=== PATIENT | male | born 1985 | race Caucasian/White ===

== ENCOUNTER 2023-12-27 02:59 | Emergency (ER) | payer BC, SELFPAY ==
[2023-12-27 03:02] VITALS: BP 158/112
[2023-12-27 03:15] VITALS: BMI 38.0
[2023-12-27 03:17] VITALS: BP 131/97
[2023-12-27 03:38] LABS: % Basophils 0.8 % (0-2); % Eosinophils 2.3 % (0-6); % Immature Granulocytes 0.3 % (0-0.5); % Lymphocytes 40.4 % (20.5-51.1); % Monocytes 9.1 % (1.7-9.3); % Neutrophils 47.1 % (42.2-75.2); Absolute Basophils 0.1 10^3/uL (0-0.2); Absolute Eosinophils 0.2 10^3/uL (0-0.7); Absolute Monocytes 0.7 10^3/uL (0.1-0.6); Absolute Neutrophils 3.5 10^3/uL (1.4-6.5); Hematocrit 41.3 % (39.0-52.0); Hemoglobin 14.9 g/dL (13.0-18.0); Mean Corp Hgb Conc. 36.1 g/dL (33.0-37.0); Mean Corpuscular Volume 80.4 fL (80.0-94.0); Mean Platelet Volume 9.5 fL (7.4-10.4); Nucleated Red Blood Cells % 0 % (-); Platelet Count 194 10^3/uL (130-400); Red Blood Cell Count 5.14 10^6/uL (4.70-6.10); Red Cell Dist. Width 11.9 % (11.5-14.5); White Blood Cell Count 7.4 10^3/uL (4.8-10.8)
[2023-12-27 03:59] LABS: ALT (SGPT) 19 U/L (0-50); AST (SGOT) 25 U/L (17-59); Albumin 4.6 g/dl (3.5-5.0); Alkaline Phosphatase 54 U/L (38-126); Blood Urea Nitrogen 13 mg/dl (9-20); Calcium 9.8 mg/dl (8.4-10.2); Carbon Dioxide 25 mmol/L (22-30); Chloride 105 mmol/L (98-107); Estimated Creatinine Clearance 109 ml/min; Glucose 98 mg/dl (70-99); Lipase 86 U/L (23-300); Potassium 4.3 mmol/L (3.5-5.1); Sodium 141 mmol/L (135-145); eGFR > 60.00
[2023-12-27] MEDS: ZOFRAN 4 MG IV (04:46)
[2023-12-27] MEDS: MORPHINE SULFATE 4 MG IV (04:46)
[2023-12-27 04:59] VITALS: BP 116/92
[2023-12-27 05:03] LABS: Urine Albumin Negative (Neg - Trace); Urine Bilirubin Negative (Negative); Urine Character Clear (Clear); Urine Color Yellow; Urine Glucose Negative (Negative); Urine Ketone Negative (Negative); Urine Leukocyte Negative (Negative); Urine Nitrite Negative (Negative); Urine Occult Blood Negative (Negative); Urine Specific Gravity 1.015 (<1.030); Urine Urobilinogen Negative (Neg - 1+)
[2023-12-27 05:18] LABS: Lactic Acid 1.1 mmol/L (0.7-2.0)
--- NOTE | 2023-12-27 05:44 | ED.GENMED ---
History of Present Illness
General
Chief Complaint: Abdominal Pain
Source: patient
Exam Limitations: none
Time Seen by Provider: 12/27/23 03:47
Nursing documentation reviewed up to this point in time: agreed with
History of Present Illness
History of Present Illness:
Pleasant 38-year-old male that presents with abdominal pain. He states that the pain has been present for the last few hours. He reports that the pain is similar to previous bowel obstruction pain. Denies fever or chills. Patient has a past
medical history significant for appendectomy, cholecystectomy, and tonsillectomy. Patient has had several colonoscopies. Patient has had a few episodes of nonbloody diarrhea. Denies chest pain or shortness of breath.
Past History
Past History
ED Past Medical History: GERD and Other (seasonal allergies)
Social History
Tobacco: Non-smoker
Alcohol: Occasional
Drug: None
Personal:
Living: with family
Phy Exam
General Physical Exam
General Presentation: well appearing and no apparent distress
General Skin: warm and dry
General Habitus: normal
General Mental: alert
General Hydration: appears well hydrated
ENT Exam
ENT Exam: EOMI, pharynx normal, neck supple and normocephalic
Eye Exam
Eye Exam: PERRL, cornea clear and conjunctiva normal
Cardiovascular Exam
Cardiovascular Exam: regular rate/rhythm, no edema, no murmur and normal peripheral pulses
Pulmonary Exam
Pulmonary Exam: lungs clear and no respiratory distress
Gastrointestinal Exam
Gastrointestinal Exam: normal bowel sounds, non tender, soft and non distended
Palpation: generalized: Minimal tenderness
Neurological Exam
Neurological Exam: alert, oriented x3, no motor deficits and speech normal
Musculoskeletal Exam
Musculoskeletal Exam: full ROM and no edema
Skin Exam
Skin Exam: normal color, warm/dry, no rash and no petechia
Psychiatric Exam
Psychiatric Exam: normal mood/affect
Course
Orders/Labs/Results
Orders:
Orders
12/27/23 03:26
Complete Blood Count/With Diff Urgent
Comprehensive Metabolic Panel Urgent
Lipase Urgent
12/27/23 04:41
Morphine Sulfate 4 mg IV NOW STA
Ondansetron Injectable [Zofran] 4 mg IV NOW STA
12/27/23 04:42
CT Abd/pelvis W Iv Cont Urgent
Comment:
Reason For Exam: abd pain similar to previous obstruction
12/27/23 04:53
Lactic Acid Q4H
Comment: CANCEL 2nd LACTIC ACID IF 1st LACTIC ACID IS LESS THAN 2
12/27/23 04:54
Urinalysis Reflex To Culture Urgent
Date Specimen was Collected: 12/27/23
Time Specimen was Collected: 04:54
12/27/23 05:49
Dicyclomine HCl [Bentyl] 20 mg IM NOW STA
12/27/23 05:57
Electrocardiogram (*1) Urgent
Reason for Study: Abdominal Pain
EKG- Treatment ONCE
12/27/23 06:36
Glycerin [Glycerin Suppository Adult] 1 supp RECTAL NOW STA
HYDROmorphone [Dilaudid] 0.5 mg IV NOW STA
Magnesium Citrate [Citroma] 300 ml PO ONCE ONE
Abnormal Lab Results
12/27/23
03:26
Absolute Monos (auto) 0.7 H 10^3/uL
(0.1-0.6)
12/27/23 03:26
12/27/23 03:26
Vital Signs
Initial and Last Documented VS:
Initial Vital Signs
Temp Pulse Resp BP Pulse Ox
98.7 F 86 24 158/112 100
12/27/23 03:02 12/27/23 03:02 12/27/23 03:02 12/27/23 03:02 12/27/23 03:02
Last Documented Vital Signs
Temp Pulse Resp BP Pulse Ox
98.2 F 73 24 133/84 97
12/27/23 03:19 12/27/23 06:05 12/27/23 03:02 12/27/23 07:00 12/27/23 07:45
*Radiology
Radiology exam reviewed: radiology read reviewed
*Pulse Oximetry
Patient hypoxic: no
*EKG
Interpreted by ED Provider?: Yes
EKG Intrepretation Date: 12/27/23
Interpretation: normal
Comparison EKG: no changes
Heart Rate: 62
Rate: normal
Rhythm: sinus
Alpha: normal axis
Interval: normal interval
QRS Pattern: normal QRS
Ischemia: no ischemia
*Down Filler Interpretation
Rate: normal
Interpretation: normal
Rhythm: sinus
*Critical Care Note
Total Time (30-74mins, 75-104mins- exclusive of procedures): Not Applicable
Update Note
Update Note:
No prior
Additional Information (per [facility]):
CT abdomen and pelvis with IV contrast
IMPRESSION:
Status post appendectomy. No bowel obstruction or diverticulitis. Stomach decompressed.
Status post cholecystectomy with pneumobilia. No pancreatitis. No obstructing renal stone. Small fat-containing umbilical hernia. No free fluid or free air.
Finalized at 5:31 AM EST
Patient states that the pain is still persistent. He states he has not have a bowel movement since Wednesday. Will give a dose of Bentyl.
12/27/2023 0637 AM: Went into talk to the patient about his CT scan. He states that he is still in pain. The Bentyl did not work. We discussed the CT findings. We discussed lab work. He again asked for stronger pain medication. I feel that it
is reasonable but he does understand that narcotic pain medication may worsen constipation. I did offer him an enema which he refused. He did agree to a glycerin suppository under the condition that he insert it. Will give him a bottle of mag
citrate for discharge.
12/27/2023 0700 AM: Patient resting comfortably, minimal acute distress.
ED Attending Note
-
Portions of this chart may have been created with voice recognition software.� Occasional wrong word or��sound alike� substitutions may have occurred due to the inherent limitations of voice recognition software.
Discharge Plan
Departure
Patient Disposition: Home (Routine Discharge)
Date of Disposition: 12/27/23
Time of Disposition: 07:00
Patient with high blood pressure during this ER visit?: Yes
Condition: Good
Discharge Problem:
Abdominal pain, Constipation
Instructions: Constipation, Adult (DC), Abdominal Pain, BLOOD PRESSURE
Prescriptions:
No Action
mometasone-formoterol [Dulera] 1 PUFF HFA aerosol inhaler
1 puff inhalation QPM
albuterol sulfate [Ventolin HFA] 90 MCG/PUFF HFA aerosol inhaler
1 - 2 puff inhalation Q4HPRN PRN (Reason: cough or wheeze)
hydrocodone-acetaminophen 1 TABLET tablet
1 tab PO Q4HPRN PRN (Reason: pain) Qty: 8 0RF
Referrals:
Roc Hicks MD [Family Provider] -
Activity Restrictions/Additional Instructions:
Take one half of the magnesium citrate provided when you get home. Wait 6 hours for results. If you do not have any results after 6 hours, take the other half of the bottle. If you still do not have any results after the second dose, please
return to the emergency department.
It was a pleasure meeting you and taking part in your care. We hope for your continued healing and wellness.
Please read discharge instructions in their entirety. However, they are for general education and may not describe your exact diagnosis at discharge. Information on your ER visit and medical conditions were discussed with you along with appropriate
follow up information...
If indicated, please take your medications as instructed and indicated on discharge paperwork.
Please schedule a follow up appointment as directed. Call to schedule an appointment
Please return to the emergency department with ANY change in, persisting, or worsening of symptoms. If any of your symptoms do not improve, or persist, or become more severe within 6-12 hours, please return to the emergency department for further
care.
Please return to the emergency department if you develop a headache, neck pain/stiffness, fever greater than 100.4F, chest pain, shortness of breath, persistent nausea, vomiting, slurred speech, difficulty walking, numbness/tingling, weakness, signs
of infection or any other symptoms that are worrisome to you.
If you have any questions or concerns please do not hesitate to call the Hospital at
Interventions
Interventions:
*Risk Screen - Suicide Last Done: 12/27/23 03:15
*General Assessment Last Done: 12/27/23 03:15
*Neglect/Abuse Screening Last Done: 12/27/23 03:15
ED- Fall Risk Assessment Last Done: 12/27/23 08:06
*ED COVID-19 Vaccine History Last Done: 12/27/23 03:15
*Nursing Disposition Last Done: 12/27/23 08:06
AU-Frbusu-Zszaxprxfn Assessment Last Done: 12/27/23 03:15
Discharge Date and Time
Discharge Date/Time: 12/27/23 08:30
Print Language: [id number]
[2023-12-27] MEDS: BENTYL 20 MG IM (05:59)
[2023-12-27 06:05] VITALS: BP 122/86
[2023-12-27] MEDS: GLYCERIN SUPPOSITORY ADULT 1 SUPP RECTAL (06:41)
[2023-12-27] MEDS: CITROMA 300 ML PO (06:41)
[2023-12-27] MEDS: DILAUDID 0.5 MG IV (06:41)
[2023-12-27 07:00] VITALS: BP 133/84
== END 2023-12-27 08:30 | disposition home or self-care (01) ==
LOC: EMR 02:59
PROVIDERS: EMERGENCY PHYSICIAN Student in an Organized Health Care Education/Training Program; FAMILY PHYSICIAN Family Medicine
DX: R10.9 Unspecified abdominal pain (principal); K59.00 Constipation, unspecified; K42.9 Umbilical hernia without obstruction or gangrene; K21.9 Gastro-esophageal reflux disease without esophagitis; I10 Essential (primary) hypertension; Z87.11 Personal history of peptic ulcer disease; Z90.49 Acquired absence of other specified parts of digestive tract; Z88.1 Allergy status to other antibiotic agents
CPT/HCPCS: 99285; 96375 ×2; 96372; 96374; 74177; 80053; 81003; 83605; 83690; 85025; 93005; Q9967